=== PATIENT | female | born 1965 | race Caucasian/White ===

== ENCOUNTER → 2017-07-20 10:21 | Outpatient (CLI) | payer OTHER, SELFPAY ==
--- NOTE | 2017-07-20 10:24 | XR_ITS ---
XR knee LT 4V HISTORY: Osteoarthritis ITS.REASON: Left knee pain ORDERING PHYSICIAN: Adelfo Cintron MD PATIENT AGE: 52 years COMPARISON: 02/11/2016 FINDINGS: Weightbearing views are performed. There are tricompartmental osteoarthritic changes with slight decrease in the joint space and osteophyte formation. No fracture or dislocation. No lytic or blastic change. IMPRESSION: Mild tricompartmental osteoarthritis. This is slightly worse on today's exam when compared to 02/11/2016
== END ==
PROVIDERS: PCP Emergency Medicine; Visit Provider Orthopaedic Surgery
DX: M25.562 Pain in left knee (principal)
CPT/HCPCS: 73564

== ENCOUNTER → 2017-08-25 07:54 | Outpatient (CLI) | payer OTHER, SELFPAY ==
--- NOTE | 2017-08-25 07:57 | CT_ITS ---
CT head/brain wo con Ordering Physician: SYLVESTER Orta Patient Age: 52 years: Female HISTORY: ITS.REASON: headaches, behavior changes TECHNIQUE: Routine Axial CT head without contrast. CT bone windows included COMPARISON :None FINDINGS No acute intracranial findings. The brain appears within normal limits. No hemorrhage. No mass. No mass effect or midline shift. No subdural or extra-axial collection. The ventricles and basal cisterns appear satisfactory. Castelan-white matter patterns satisfactory. Posterior fossa appears normal The skull is intact.. . Mild mucosal thickening is seen at the partially imaged anterior ethmoid air cells bilaterally suggesting minor ethmoid inflammation... Minor observation but Conceivably could contribute to minor headache symptoms. Sphenoid and frontal sinuses are clear. The maxillary sinuses are not included on axial images but appear clear on sediment remediation consultant view. Mastoid air cells, middle ear and IACs appear satisfactory. IMPRESSION: ====== No acute intracranial findings. Brain within normal limits on today's CT head without contrast. Trace mucosal thickening anterior ethmoid air cells bilaterally..
== END ==
PROVIDERS: Family Provider Emergency Medicine; PCP Emergency Medicine; Visit Provider Physician Assistant
DX: R51 Headache (principal)
CPT/HCPCS: 70450

== ENCOUNTER → 2018-02-07 10:33 | Outpatient (CLI) | payer OTHER, SELFPAY ==
--- NOTE | 2018-02-07 10:37 | MM_ITS ---
MM Dig screening mamm BI w/CAD CAD Screening COMPARISON: Digital mammograms with CAD 02/11/2017 and 10/09/2012 INDICATION: There is no personal or family history of breast cancer TECHNIQUE: Standard CC and MLO images were obtained. R2 CAD reviewed. FINDINGS: Mild scattered fiber glandular densities are seen throughout both breasts slightly more prominent subareolar region right breast than left. There is no suspicious lesion and there are no suspicious microcalcifications. IMPRESSION: Fibrofatty parenchyma no suspicious lesion seen BI-RADS Category: 1 Negative RECOMMENDED FOLLOW-UP: 1YR - 1 YEAR FOLLOW-UP (A letter has been sent to the patient regarding results of the study.)
== END ==
PROVIDERS: PCP Physician Assistant; Visit Provider Physician Assistant
DX: Z12.31 Encounter for screening mammogram for malignant neoplasm of breast (principal)
CPT/HCPCS: 77067

== ENCOUNTER → 2018-03-20 18:25 | Outpatient (CLI) | payer OTHER, SELFPAY ==
[2018-03-20 18:59] LABS: Basophils # 0.1 K/mm3 (0-0.2); Basophils % 0.6 % (0.1-2.0); Eosinophils # 0.2 K/mm3 (0.0-0.4); Hematocrit 43.1 % (37.0-47.0); Lymphocytes # 3.6 K/mm3 (0.7-4.5); Lymphocytes % 31.1 K/mm3 (10-50); Mean Corpuscular HGB Conc 32.5 g/dL (31.8-35.4); Mean Corpuscular Hemoglobin 30.3 pg (27.0-31.2); Mean Corpuscular Volume 93.1 fl (81-99); Mean Platelet Volume 8.1 fl (7.4-10.4); Monocytes # 0.6 K/mm3 (0.1-1.0); Monocytes % 4.7 % (1.7-9.3); Neutrophils # 7.2 K/mm3 (1.8-7.8); Neutrophils % 61.7 % (37.0-80.0); Platelet Count 299 K/mm3 (142-424); Red Blood Count 4.63 M/mm3 (4.20-5.40); Red Cell Distribution Width 13.8 % (11.5-17.5); White Blood Count 11.6 K/mm3 (4.8-10.8)
[2018-03-20 19:47] LABS: Alanine Aminotransferase 28 U/L (12-78); Albumin Level 4.1 gm/dL (3.4-5.0); Albumin/Globulin Ratio 1.5 (1.1-1.8); Alkaline Phosphatase 63 U/L (46-116); Aspartate Amino Transferase 20 U/L (15-37); Bilirubin,Total 0.2 mg/dL (0.2-1.0); Blood Urea Nitrogen 13 mg/dL (7-18); Calcium 8.9 mg/dL (8.5-10.1); Carbon Dioxide 29 mmol/L (21.0-32.0); Chloride 105 mmol/L (98-107); Chol/HDL Ratio 4.9 (1-3.5); Cholesterol 202 mg/dL (140-200); Creatinine,Serum 0.82 mg/dL (0.55-1.02); Estimated Glomerular Filt Rate 73 ml/min (>60); GFR (African American) 89 ML/MIN (>60); Globulin 2.8 gm/dl (1.3-3.2); Glucose 89 mg/dL (74-106); HDL Cholesterol 41 mg/dL (29-89); LDL Cholesterol 113 mg/dL (0-130); Sodium 144 mmol/L (136-145); T4 (Thyroxine) 8.6 ug/dl (4.7-13.3); Thyroid Stimulating Hormone 1.19 uIU/ml (0.358-3.740); Total Protein,Serum 6.9 gm/dL (6.4-8.2); Triglycerides 240 mg/dL (30-200); VLDL Cholesterol 48 mg/dL (0-40)
[2018-03-22 14:43] LABS: FSH 43.5 mIU/mL (.); LH 29.8 mIU/mL (.); Vitamin D 25 Hydroxy 29.2 ng/mL (30.0-100.0)
[2018-03-24 14:17] LABS: Testosterone,Free 1.3 pg/mL (0.0-4.2)
[2018-03-25 18:41] LABS: Estrogen 84 pg/mL (.)
== END ==
PROVIDERS: Visit Provider Physician Assistant
DX: G47.00 Insomnia, unspecified (principal)
CPT/HCPCS: 80053; 80061; 82652; 82672; 83001; 83002; 84402; 84436; 84443; 85025

== ENCOUNTER → 2018-05-17 11:13 | Outpatient (CLI) | payer OTHER, SELFPAY ==
[2018-05-20 10:57] LABS: QuantiFERON-TB Gold Plus Negative (Negative)
== END ==
PROVIDERS: Visit Provider Physician Assistant
DX: R76.11 Nonspecific reaction to tuberculin skin test without active tuberculosis (principal)
CPT/HCPCS: 36415; 86480

== ENCOUNTER → 2018-10-23 09:58 | Outpatient (CLI) | payer OTHER, SELFPAY | PROVIDERS: PCP Emergency Medicine; Visit Provider Urology | DX: R06.02 Shortness of breath (principal); R00.2 Palpitations; R07.9 Chest pain, unspecified; I10 Essential (primary) hypertension | CPT/HCPCS: 93017 ==

== ENCOUNTER → 2018-10-27 09:21 | Outpatient (CLI) | payer OTHER, SELFPAY ==
--- NOTE | 2018-10-27 09:25 | CA_ITS ---
PROCEDURE: 2-D M-mode and color Doppler study INDICATIONS FOR THE TEST: Chest pain+ COPD Heart Murmur Tobacco Smoking+ Palpitations+ Fatigue Syncope Edema Hypertension+Diabetes Mellitus Rheumatic Fever SOB+DAMON Obesity Hyperlipidemia Family History HD Additional History PATIENT INFORMATION HEIGHT:67 WEIGHT:205 GENDER: Female B/P:132/90 2-D/M-MODE INTERPRETATION: 2-D MEASUREMENTS OBSERVED VALUES IN CMS Right Ventricular Dimension (RVDd) 2.6 Interventricular Septum (Thickness)(IVsd) 1.3 Left Ventricular Internal Dimensions(LVIDd) 4.6 Left Ventricular Posterior Wall (Thickness)(LVPWd) 0.8 Aortic Root 2.7 Aortic Cusp Separation 2.4 Left Atrial Dimensions (LAD) 3.0 2D 1. Left atrium is mildly enlarged, left ventricle is normal size, mild concentric left ventricular hypertrophy, visually estimated ejection fraction 55% with no regional wall motion abnormality. 2. Right atrium and right ventricle are normal size and contractility. 3. The aortic valve is minimally thickened and fibrosed. 4. The mitral and tricuspid valve leaflets are minimally thickened 5. The pulmonic valve is poorly visualized. 6. No significant pericardial effusion noted. DOPPLER INTERROGATION: Doppler interrogation of the aortic, mitral and tricuspid valvular presence of mild mitral and tricuspid regurgitation, tricuspid regurgitation jet velocity is inadequate for calculation of the right ventricular systolic pressure, grade 1 diastolic dysfunction seen without tissue Doppler evidence of raised left atrial pressure. CONCLUSION: 1. Mildly enlarged left atrium, normal left ventricular size, mild concentric left ventricular hypertrophy, visually estimated ejection fraction 55% with no regional wall motion abnormality, grade 1 diastolic dysfunction seen without tissue Doppler evidence of raised left atrial pressure. 2. Mild mitral and tricuspid regurgitation 3. No significant pericardial effusion noted.
== END ==
PROVIDERS: PCP Emergency Medicine; Visit Provider Urology
DX: I10 Essential (primary) hypertension (principal); I25.10 Atherosclerotic heart disease of native coronary artery without angina pectoris; R00.2 Palpitations; R06.02 Shortness of breath; R07.9 Chest pain, unspecified
CPT/HCPCS: 93306

== ENCOUNTER → 2020-10-23 14:07 | Outpatient (CLI) | payer OTHER, SELFPAY ==
[2020-10-23 15:21] LABS: Basophils # 0.1 K/mm3 (0-0.2); Basophils % 1.1 % (0.1-2.0); Eosinophils # 0.3 K/mm3 (0.0-0.4); Eosinophils % 4.8 % (0.1-12.0); Hematocrit 45.9 % (37.0-47.0); Hemoglobin 14.6 g/dL (12.2-16.2); Lymphocytes # 3.1 K/mm3 (0.7-4.5); Mean Corpuscular HGB Conc 31.8 g/dL (31.8-35.4); Mean Corpuscular Volume 94.4 fl (81-99); Mean Platelet Volume 7.8 fl (7.4-10.4); Monocytes # 0.3 K/mm3 (0.1-1.0); Monocytes % 4.9 % (1.7-9.3); Neutrophils # 2.5 K/mm3 (1.8-7.8); Neutrophils % 40.1 % (37.0-80.0); Platelet Count 283 K/mm3 (142-424); Red Blood Count 4.86 M/mm3 (4.20-5.40); Red Cell Distribution Width 13.4 % (11.5-17.5); White Blood Count 6.3 K/mm3 (4.8-10.8)
[2020-10-26 14:25] LABS: QuantiFERON-TB Gold Plus Negative (Negative)
== END ==
PROVIDERS: Visit Provider Internal Medicine Pulmonary Disease
DX: J45.909 Unspecified asthma, uncomplicated (principal)
CPT/HCPCS: 36415; 85025; 86480

== ENCOUNTER → 2020-11-03 13:16 | Outpatient (CLI) | payer OTHER, SELFPAY ==
--- NOTE | 2020-11-03 14:48 | CT_ITS ---
PROCEDURE: CT LUNG SCREENING CLINICAL INDICATION: lung cancer screening COMPARISON: No exams were available for comparison TECHNIQUE: The exam was performed on a GE Light Speed [address] scanner using 2.90 mGy CTDI. A low dose helical CT CHEST was performed on a multi-detector scanner. All CT scans at the facility use one or more dose reduction, viz: automated exposure control, ma/kV adjustment per patient size (including targeted exams where dose is matched to indication, i.e. head), or iterative reconstruction technique. The LDCT was performed in a facility that meets the criteria for the screening program. Data regarding this exam was submitted to ACR which is an approved registry. The order for this exam indicates that it came as a result of a lung cancer screening counseling shard decision-making visit that included all the elements required of such a visit including smoking cessation. The radiologist interpreting this exam meets the CMS criteria for the LDCT lung cancer screening program. The exam is reported using the Lung-RADS classification scale and reported to the ACR registry. NOTE: This study was performed for the specific purposes of lung cancer screening and is not an alternative to diagnostic chest CT. RADIATION DOSE: CTDI vol(CT dose Index-volume) = 2.90mG DLP (Dose Length Product) = mGcm FINDINGS: There are scattered emphysematous changes with some bibasilar scar versus atelectasis. No definitive discrete pulmonary nodules. Small calcified granuloma in the left lung base. No pleural effusion or pneumothorax. Heart is not enlarged. No pericardial effusion or thickening. No ground-glass opacities in the lungs or pulmonary consolidation. Airways are patent. Thoracic aorta is normal without aneurysm. No enlarged axillary lymph nodes. A few small non-specific middle mediastinal lymph nodes are noted. Hilar regions grossly appear normal. Images of the upper abdomen show some diffuse fatty infiltration of the visualized liver. No adrenal mass. There are some diffuse degenerative changes of the thoracic spine. Small benign appearing sclerotic focus noted in the T2 vertebral body. OTHER FINDINGS: No other pertinent findings evident. IMPRESSION: Lung-RADS Category 2 Benign Appearance or Behavior Follow-up: Serial follow-up in 1 year. Scattered emphysematous changes with some bibasilar scar versus atelectasis. No definitive discrete pulmonary nodules noted. Dictated by: Adelfo Ceja 11/04/2020 11:03 Adelfo Ceja in OV 11/04/2020 11:03
--- NOTE | 2020-11-03 14:53 | PC.NURSE ---
Full PFT and 6 minute walk completed without incident. Albuterol 0.083% given via HHN per written protocol Pt tolerated tx well.
== END ==
PROVIDERS: PCP Physician Assistant; Visit Provider Nurse Practitioner Family
DX: R06.02 Shortness of breath (principal); Z87.891 Personal history of nicotine dependence; Z12.2 Encounter for screening for malignant neoplasm of respiratory organs
CPT/HCPCS: 71271; 94060; 94618; 94726; 94729

== ENCOUNTER → 2021-10-02 12:56 | Outpatient (CLI) | payer OTHER, SELFPAY ==
--- NOTE | 2021-10-02 13:02 | XR_ITS ---
FINAL REPORT CLINICAL HISTORY: knee pain COMPARISON: 07/20/2017 FINDINGS: LEFT KNEE: Four views of the left knee obtained. There is no acute fracture or dislocation. There are [id number] degenerative changes. There is no soft tissue abnormality. IMPRESSION: Degenerative changes as above. Reviewed, Interpreted and Dictated by Mikel Cristobal III, MD Transcribed by Fifi Nance Authenticated by Mikel Cristobal III, MD on 10/02/2021 02:51:00 PM [facility]
--- NOTE | 2021-10-02 13:02 | XR_ITS ---
FINAL REPORT CLINICAL HISTORY: knee pain COMPARISON: February 11, 2016 FINDINGS: RIGHT KNEE: Four views of the right knee obtained. There is no acute fracture or dislocation. There are moderate and severe degenerative changes, worst at the medial compartment. The medial compartment degenerative changes have progressed since the prior exam. There is a suprapatellar calcification measuring 11 mm, worrisome for a loose body. There is no acute soft tissue abnormality. IMPRESSION: Degenerative changes as above. Findings worrisome for loose body. Reviewed, Interpreted and Dictated by Mikel Cristobal III, MD Transcribed by Fifi Nance Authenticated by Mikel Cristobal III, MD on 10/02/2021 02:50:57 PM [facility]
== END ==
PROVIDERS: PCP Emergency Medicine; Visit Provider Orthopaedic Surgery
DX: M25.561 Pain in right knee (principal); M25.562 Pain in left knee
CPT/HCPCS: 73564

== ENCOUNTER 2021-10-30 11:32 | Outpatient (RCR) | payer OTHER, SELFPAY | END 2021-10-30 12:30 | disposition home or self-care (01) | LOC: PT 11:32 | PROVIDERS: Visit Provider Orthopaedic Surgery | DX: M25.562 Pain in left knee (principal); M25.561 Pain in right knee | CPT/HCPCS: 97760 ==

== ENCOUNTER 2021-12-03 09:00 | Outpatient (RCR) | payer OTHER, SELFPAY ==
--- NOTE | 2021-11-04 12:02 | HMH.PTOPEV ---
PT Outpatient Evaluation Rehab PT Outpatient Evaluation Start: 11/04/21 11:04 Freq: Status: Active Protocol: Document 11/04/21 11:04 SULLY (Rec: 11/04/21 12:01 SULLY [id number]) Electronically Signed By Betty Rossi, DIEGO 11/04/21 11:04 Outpatient Therapy Subjective History Subjective History Pt is a 56 y/o female that reports onset of right knee pain approximately 5 years ago . Pt reports the left knee doesn't hurt as bad and started hurting a year ago.Pt had a knee xray at [facility] perform 10/02/21 showing mild-moderate degenerative changes and states arthritis runs in her family. Pt states she would like to avoid surgery as long as possible. Pt reports she notices swelling in the back of the right knee with activity with improvements following rest.Pt reports she hears popping in the right knee while standing/walking and feels like it will give out. Pt reports she is able to stand 1 hr and walk <10 minutes without increased pain . Pt reports she used to workout here at [facility] doing 1-3 mi on elliptical and weight lifting. Pt reports she got a brace 1 week ago but just started wearing the brace today. Pt reports she has 2-3 steps outside the home with pain/difficulty going up them. Pt reports she has a pool she has been trying to walk in as she can. Pt reports she has high blood pressure which makes her feel dizzy but otherwise denies balance issues. Medical Hx:hypertension, hypothyroidism, GERD Chief Complaint Pain,Stiff,Gives out/Unstable Symptom Type Sharp,Stabbing Symptoms Relieved By Rest/Positioning,Heat,Brace/ Support Symptoms Aggravated By Standing,Jesse
== END 2021-12-03 09:05 | disposition home or self-care (01) ==
LOC: PT 09:00
PROVIDERS: PCP Emergency Medicine; Visit Provider Orthopaedic Surgery
DX: M25.562 Pain in left knee (principal); M25.561 Pain in right knee
CPT/HCPCS: 97110; 97163; 97530

== ENCOUNTER → 2022-02-24 14:57 | Outpatient (CLI) | payer OTHER, SELFPAY ==
--- NOTE | 2022-02-24 15:09 | CT_ITS ---
FINAL REPORT TECHNIQUE: Axial images were obtained from the lung apex to the mid abdomen by computed tomography. This study was performed with techniques to keep radiation doses as low as reasonably achievable (ALARA). Individualized dose reduction techniques using automated exposure control or adjustment of mA and/or kV according to the patient's size were employed. CLINICAL HISTORY: lung cancer screening. SOA, cough. 53 pack years. Hx COPD COMPARISON: 11/03/2020 FINDINGS: CHEST CT LOW DOSE CTDI vol (mGy): 2.90 DLP (mGy-cm): 97.42 There is no axillary adenopathy. There are small mediastinal nodes. The heart is normal in size. There is no pericardial or pleural effusion. Lung window images demonstrate no suspicious infiltrate or nodule. There is a calcified granuloma in the left lower lobe. There is mild scarring. Limited images of the upper abdomen are unremarkable. IMPRESSION: Lung RADS category 1. Recommend 12 month follow-up low-dose chest CT. Reviewed, Interpreted and Dictated by Mikel Cristobal III, MD Transcribed by [place] Authenticated and [facility]
== END ==
PROVIDERS: PCP Emergency Medicine; Visit Provider Internal Medicine Pulmonary Disease
DX: Z87.891 Personal history of nicotine dependence (principal); Z12.2 Encounter for screening for malignant neoplasm of respiratory organs
CPT/HCPCS: 71271

== ENCOUNTER → 2022-03-16 13:00 | Outpatient (CLI) | payer OTHER, SELFPAY ==
[2022-03-16 13:36] LABS: Basophils # 0.1 K/mm3 (0-0.2); Basophils % 1.3 % (0.1-2.0); Eosinophils # 0.3 K/mm3 (0.0-0.4); Eosinophils % 2.6 % (0.1-12.0); Hematocrit 44.4 % (37.0-47.0); Hemoglobin 14.3 g/dL (12.2-16.2); Lymphocytes # 3.2 K/mm3 (0.7-4.5); Lymphocytes % 33.4 % (10-50); Mean Corpuscular HGB Conc 32.1 g/dL (31.8-35.4); Mean Corpuscular Hemoglobin 31.4 pg (27.0-31.2); Mean Corpuscular Volume 97.7 fl (81-99); Mean Platelet Volume 8.7 fl (7.4-10.4); Monocytes # 0.6 K/mm3 (0.1-1.0); Monocytes % 6.1 % (1.7-9.3); Neutrophils # 5.5 K/mm3 (1.8-7.8); Neutrophils % 56.7 % (37.0-80.0); Platelet Count 349 K/mm3 (142-424); Red Blood Count 4.55 M/mm3 (4.20-5.40); Red Cell Distribution Width 13.9 % (11.5-17.5); White Blood Count 9.7 K/mm3 (4.8-10.8)
[2022-03-16 14:27] LABS: Chloride 101 mmol/L (98-107); Potassium 4.4 mmoL/L (3.5-5.1); Sodium 138 mmol/L (136-145)
[2022-03-16 14:29] LABS: Blood Urea Nitrogen 12 mg/dl (7-17); Estimated Glomerular Filt Rate 74 ml/min (>60); GFR (African American) 90 ML/MIN (>60)
[2022-03-16 14:30] LABS: Alanine Aminotransferase 20 U/L (12-78); Albumin Level 4.3 g/dl (3.5-5.0); Albumin/Globulin Ratio 1.9 (1.1-1.8); Alkaline Phosphatase 61 U/L (38-126); Anion Gap 13.4 mEq/L (5-15); Aspartate Amino Transferase 27 U/L (14-36); Bilirubin,Total 0.3 mg/dl (0.2-1.3); Calcium 8.8 mg/dl (8.4-10.2); Carbon Dioxide 28 mmol/L (22.0-30.0); Cholesterol 242 mg/dl (140-200); Globulin 2.3 g/dL (1.3-3.2); Glucose 78 mg/dl (74-100); HDL Cholesterol 48 mg/dl (40-60); Total Protein,Serum 6.6 g/dl (6.3-8.2); Triglycerides 119 mg/dl (30-150); VLDL Cholesterol 24 mg/dL (0-40)
[2022-03-16 14:41] LABS: Direct LDL Cholesterol 148.19 mg/dL (100-129)
[2022-03-16 14:47] LABS: T4 (Thyroxine) 10.1 ug/dl (5.53-11.0)
[2022-03-16 15:00] LABS: Thyroid Stimulating Hormone 1.38 uIU/mL (0.465-4.68)
[2022-03-16 15:31] LABS: Free Thyroxine Index 3.4 ug/dL (5.93-13.13); Triiodothryronine (T3) Uptake 34 % (23.5-40.5)
== END ==
PROVIDERS: PCP Emergency Medicine; Visit Provider Nurse Practitioner Obstetrics & Gynecology
DX: Z01.419 Encounter for gynecological examination (general) (routine) without abnormal findings (principal); Z79.899 Other long term (current) drug therapy
CPT/HCPCS: 36415; 80053; 80061; 84436; 84443; 84479; 85025

== ENCOUNTER → 2022-04-30 18:28 | Outpatient (CLI) | payer OTHER, SELFPAY | PROVIDERS: PCP Nurse Practitioner Family; Visit Provider Nurse Practitioner Family | DX: N39.0 Urinary tract infection, site not specified (principal) | CPT/HCPCS: 87086 ==

== ENCOUNTER → 2022-05-13 18:22 | Outpatient (CLI) | payer OTHER, SELFPAY | PROVIDERS: PCP Nurse Practitioner Family; Visit Provider Nurse Practitioner Family | DX: N39.0 Urinary tract infection, site not specified (principal); A49.9 Bacterial infection, unspecified | CPT/HCPCS: 87086 ==

== ENCOUNTER → 2022-11-18 13:52 | Outpatient (CLI) | payer OTHER, SELFPAY ==
[2022-11-18 12:42] LABS: Basophils # 0.1 K/mm3 (0-0.2); Basophils % 0.9 % (0.1-2.0); Eosinophils # 0.2 K/mm3 (0.0-0.4); Eosinophils % 1.8 % (0.1-12.0); Hematocrit 46.7 % (37.0-47.0); Hemoglobin 14.9 g/dL (12.2-16.2); Lymphocytes # 3.7 K/mm3 (0.7-4.5); Lymphocytes % 40.3 % (10-50); Mean Corpuscular HGB Conc 31.8 g/dL (31.8-35.4); Mean Corpuscular Hemoglobin 30.8 pg (27.0-31.2); Mean Corpuscular Volume 96.7 fl (81-99); Mean Platelet Volume 8.6 fl (7.4-10.4); Monocytes # 0.8 K/mm3 (0.1-1.0); Monocytes % 8.4 % (1.7-9.3); Neutrophils # 4.5 K/mm3 (1.8-7.8); Neutrophils % 48.6 % (37.0-80.0); Platelet Count 303 K/mm3 (142-424); Red Blood Count 4.83 M/mm3 (4.20-5.40); Red Cell Distribution Width 13.7 % (11.5-17.5); White Blood Count 9.2 K/mm3 (4.8-10.8)
[2022-11-18 12:48] LABS: Alanine Aminotransferase 20 U/L (12-78); Albumin Level 4.5 g/dl (3.5-5.0); Albumin/Globulin Ratio 1.8 (1.1-1.8); Alkaline Phosphatase 54 U/L (38-126); Anion Gap 14.2 mEq/L (5-15); Aspartate Amino Transferase 24 U/L (14-36); Bilirubin,Total 0.5 mg/dl (0.2-1.3); Blood Urea Nitrogen 13 mg/dl (7-17); Calcium 9.5 mg/dl (8.4-10.2); Carbon Dioxide 27 mmol/L (22.0-30.0); Chloride 104 mmol/L (98-107); Chol/HDL Ratio 4.7 (1-3.5); Cholesterol 257 mg/dl (140-200); Estimated Glomerular Filt Rate 86 ml/min (>60); GFR (African American) 104 ML/MIN (>60); Globulin 2.5 g/dL (1.3-3.2); Glucose 83 mg/dl (74-100); HDL Cholesterol 55 mg/dl (40-60); Magnesium 2.1 mg/dl (1.6-2.3); Potassium 4.2 mmoL/L (3.5-5.1); Sodium 141 mmol/L (136-145); Triglycerides 128 mg/dl (30-150); VLDL Cholesterol 26 mg/dL (0-40)
[2022-11-18 13:00] LABS: Direct LDL Cholesterol 148.24 mg/dL (100-129)
[2022-11-18 13:08] LABS: 25-OH Vitamin D, Total 32.7 ng/mL (30-100)
[2022-11-18 13:10] LABS: Free T4 (Free Thyroxine) 1.54 ng/dl (0.78-2.19)
[2022-11-18 13:23] LABS: Thyroid Stimulating Hormone 0.82 uIU/mL (0.465-4.68)
[2022-11-18 13:42] LABS: Vitamin B12 488 pg/mL (239-931)
[2022-11-18 13:47] LABS: Iron 139 ug/dL (37-170)
[2022-11-18 13:56] LABS: Total Iron Binding Capacity 332 ug/dL (265-497)
[2022-11-18 14:24] LABS: Ferritin 123 ng/ml (11.1-264)
== END ==
PROVIDERS: PCP Nurse Practitioner Family; Visit Provider Nurse Practitioner Family
DX: E03.9 Hypothyroidism, unspecified (principal); E78.5 Hyperlipidemia, unspecified; R53.83 Other fatigue; E66.9 Obesity, unspecified; Z68.31 Body mass index [BMI] 31.0-31.9, adult; Z79.899 Other long term (current) drug therapy
CPT/HCPCS: 80053; 80061; 82306; 82330; 82607; 82728; 83540; 83550; 83735; 84439; 84443; 85025

== ENCOUNTER → 2022-12-10 10:50 | Outpatient (CLI) | payer OTHER, SELFPAY ==
--- NOTE | 2022-12-10 10:56 | XR_ITS ---
FINAL REPORT CLINICAL HISTORY: Rt Knee Pain COMPARISON: 10/02/2021 FINDINGS: AP, lateral and oblique views of the right knee were obtained. There is no acute fracture or dislocation. There is tricompartmental degenerative joint disease. There is a calcified suprapatellar loose body. The soft tissues are normal. There is no joint effusion. IMPRESSION: Tricompartmental degenerative joint disease without acute osseous abnormality. Reviewed, Interpreted and Dictated by Greta Garibay MD Transcribed by Fifi Nance Authenticated and [facility]
== END ==
PROVIDERS: PCP Emergency Medicine; Visit Provider Orthopaedic Surgery
DX: M25.561 Pain in right knee (principal)
CPT/HCPCS: 73562

== ENCOUNTER 2024-09-20 08:52 | Outpatient (CLI) | payer MEDICAID, SELFPAY ==
[2024-09-20 18:26] LABS: Basophils # 0.1 K/mm3 (0-0.2); Eosinophils # 0.3 Kmm3 (0.0-0.4); Eosinophils % 3.7 % (0.1-12.0); Hematocrit 45.5 % (37.0-47.0); Lymphocytes # 2.9 K/mm3 (0.7-4.5); Lymphocytes % 41.8 % (10-50); Mean Corpuscular Hemoglobin 30.6 pg (27.0-31.2); Mean Corpuscular Volume 92.9 fl (81-99); Mean Platelet Volume 10.3 fl (7.4-10.4); Monocytes # 0.6 K/mm3 (0.1-1.0); Monocytes % 8.3 % (1.7-9.3); Neutrophils # 3.1 K/mm3 (1.8-7.8); Neutrophils % 44.8 % (37.0-80.0); Nucleated Red Blood Cells # 0 10^3/uL; Nucleated Red Blood Cells % 0 %; Platelet Count 329 K/mm3 (142-424); Red Cell Distribution Width-SD 47.5 fL; White Blood Count 6.8 K/mm3 (4.8-10.8)
[2024-09-20 19:07] LABS: Alanine Aminotransferase 30 U/L (12-78); Albumin Level 4.5 g/dl (3.5-5.0); Alkaline Phosphatase 82 U/L (38-126); Anion Gap 8.1 mEq/L (5-15); Aspartate Amino Transferase 28 U/L (14-36); Bilirubin,Total 0.5 mg/dl (0.2-1.3); Blood Urea Nitrogen 11 mg/dl (7-17); Calcium 9.8 mg/dl (8.4-10.2); Carbon Dioxide 27 mmol/L (22.0-30.0); Chloride 106 mmol/L (98-107); Chol/HDL Ratio 7.4 (1-3.5); Cholesterol 245 mg/dl (140-200); Estimated Glomerular Filt Rate 86 ml/min (>60); GFR (African American) 104 ML/MIN (>60); Globulin 2.2 g/dL (1.3-3.2); Glucose 99 mg/dl (74-100); HDL Cholesterol 33 mg/dl (40-60); Potassium 4.1 mmoL/L (3.5-5.1); Sodium 137 mmol/L (136-145); Total Protein,Serum 6.7 g/dl (6.3-8.2); Triglycerides 204 mg/dl (30-150); VLDL Cholesterol 41 mg/dL (0-40)
[2024-09-20 19:14] LABS: 25-OH Vitamin D, Total 28.7 ng/mL (30-100)
[2024-09-20 19:28] LABS: Direct LDL Cholesterol 146.98 mg/dL (100-129)
[2024-09-20 19:32] LABS: HIV Combo NEGATIVE (Negative)
[2024-09-20 19:41] LABS: Hepatitis C Ab Qual. W/ RFX NEGATIVE (Negative)
[2024-09-20 19:50] LABS: Vitamin B12 950 pg/mL (239-931)
--- OUTSIDE RECORDS SUMMARY | 2024-09-21 12:42 | XMS_ITS | Data Portability ---
Author Organization [facility] Address [address] [place] [address] Assessment No assessment recorded. Plan of Treatment Reminders Order Date Submit Date Provider Last Modified By Organization Details Last Modified Time Details Appointments None recorded. Lab urinalysis, dipstick 2022 023 [facility], [address] [place] [address], [phone], 3 12:14:48 urinalysis, dipstick [address] [facility], [address] [place] [address], [phone], 2 14:27:35 Referral None recorded. Procedures None recorded. Surgeries None recorded. Imaging None recorded. Medication Orders prasterone (DHEA) 6.5 mg vaginal insert 2022 023 [facility], [address] [place] [address] [address] [place], [place], [id number], 3 18:05:47 estradiol 0.01% (0.1 mg/gram) vaginal cream 2022 023 [facility], [address] [place] [address] [address], [place], [place], [phone], 3 16:01:00 Patient TargetsNo targets recorded. Patient InstructionsNo instructions recorded. Reason for Referral None Reported. Results Created Date Observation Date Name Description Value Unit Range Abnormal Flag Note LastModifiedBy Organization Detail LastModifiedTime 05/07/20 22 05/07/2022 urina lysis , dipst ick Leukocytes (reference range) negati ve Not Available [facility] [address] [place] [address], [phone], 05/07/2022 12:00:27 05/07/20 22 05/07/2022 urina lysis , dipst ick Nitrite (reference range:) negati ve Not Available [address], [address], 05/07/2022 12:00:27 05/07/20 22 05/07/2022 urina lysis , dipst ick Urobilinogen (reference range) 0.2 Not Available [address], [address], 05/07/2022 12:00:27 05/07/20 22 05/07/2022 urina lysis , dipst ick Protein (reference range) negati ve Not Available [address], [address], 05/07/2022 12:00:27 05/07/20 22 05/07/2022 urina lysis , dipst ick pH (reference range 5-8.5) 7.0 Not Available [facility] [address] [place] [address], [phone], 05/07/2022 12:00:27 05/07/20 22 05/07/2022 urina lysis , dipst ick Blood (reference range:) hemoly zed: Trace Not Available [address], [address], 05/07/2022 12:00:27 05/07/20 22 05/07/2022 urina lysis , dipst ick Specific [place] (reference range) 1.010 Not Available [facility] [address] [place] [address], [phone], 05/07/2022 12:00:27 05/07/20 22 05/07/2022 urina lysis , dipst ick Ketone (reference range) negati ve Not Available [facility] [address] [place] [address], [phone], 05/07/2022 12:00:27 05/07/20 22 05/07/2022 urina lysis , dipst ick Bilirubin (reference range) negati ve Not Available [facility] [address] [place] [address], [phone], 05/07/2022 12:00:27 05/07/20 22 05/07/2022 urina lysis , dipst ick Glucose (reference range) negati ve Not Available [facility] [address] [place] [address], [phone], 05/07/2022 12:00:27 03/22/20 23 03/22/2023 urina lysis , dipst ick Leukocytes (reference range) negati ve Not Available [address], [address], 03/22/2023 10:03:05 03/22/20 23 03/22/2023 urina lysis , dipst ick Nitrite (reference range:) negati ve Not Available [address], [address], 03/22/2023 10:03:05 03/22/20 23 03/22/2023 urina lysis , dipst ick Urobilinogen (reference range) 0.2 Not Available [address], [address], 03/22/2023 10:03:05 03/22/20 23 03/22/2023 urina lysis , dipst ick Protein (reference range) negati ve Not Available [facility] [address] [place] [address], [phone], 03/22/2023 10:03:05 03/22/2003/22/2023 urina lysis , dipst ick pH (reference range 5-8.5) 7.0 Not Available [facility] [address] [place] [address], [phone], 03/22/2023 10:03:05 03/22/2003/22/2023 urina lysis , dipst ick Blood (reference range:) negati ve Not Available [address], [address], 03/22/2023 10:03:05 03/22/2003/22/2023 urina lysis , dipst ick Specific [place] (reference range) 1.010 Not Available [address], [address], 03/22/2023 10:03:05 03/22/2003/22/2023 urina lysis , dipst ick Ketone (reference range) negati ve Not Available [address], [address], 03/22/2023 10:03:05 03/22/2003/22/2023 urina lysis , dipst ick Bilirubin (reference range) negati ve Not Available [address], [address], 03/22/2023 10:03:05 03/22/2003/22/2023 urina lysis , dipst ick Glucose (reference range) negati ve Not Available [address], [address], 03/22/2023 10:03:05 Result Notes None recorded. Problems Name Problem SNOMED Code Status Onset Date Resolution Date Notes Provider Name and Address Organization Details Recorded Time Anemia 780382937 Active 2021 Elaine bourgeois, [place] - [facility] & [place] 2 11:07:14 Hypertensive disorder 65236219 Active 2021 Elaine bourgeois, [place] - [facility] - [facility] & [place] 2 11:07:20 Environmental allergy 196326119 Active 2021 Elaine bourgeois, [place] - [facility] - [facility] & [place] 2 11:07:28 Arthritis 8736521 Active 2021 Elaine bourgeois, [place] - [facility] - [facility] & [place] 2 11:07:36 Chronic obstructive pulmonary disease 70471614 Active 2021 Elaine bourgeois, [place] - [facility] - [facility] & [place] 2 11:07:46 Problem Notes None recorded. Procedures Surgical History Date Name Laterality Status Provider Name and Address Organization Details Recorded Time 03/22/20 23 Urethral Dilation (female) completed Bharat Orona Jr, MD [address] [place] [address], [address], [place], [address], [place] - [facility] - [place] & [place] 03/22/2023 10:14:17 05/07/20 22 Urethral Dilation (female) completed Bharat Orona Jr, MD [address] [place] [address], [address], [place], [address], [place] - [facility] - [place] & [place] 05/07/2022 14:31:28 Total Hysterectomy completed Elaine DODSON - [facility] & [place] 05/07/2022 11:08:36 tonsillectomy completed Elaine DODSON - [facility] - [place] & [place] 05/07/2022 11:08:42 Imaging Results None recorded. Procedure Notes None recorded. Medical Equipment None Reported. Allergies Allergen ID Allergen Name Allergen Category Reaction Reaction Severity Criticality Documentation Date Start Date Code Code System Note Provider Name and Address Organization Details Recorded Time 60952 Product containin g penicilli n (product) medicatio n Not available Not available Not available 05/07/2022 93256 8001 SNOMED Elaine Parikh [facility], [place] - [facility] - [place] & [place] 2 11:03:22 Medications Name Sig Start Date Stop Date Status Note LastModified by Organization Details LastModified Time cyclobenzapr ine 10 mg tablet TAKE ONE TABLET BY MOUTH TWICE DAILY MAY CAUSE DROWSINESS active Not Available Not Available N ot Available meloxicam 15 mg tablet TAKE ONE TABLET BY MOUTH EVERY DAY active Not Available Not Available No t Available lisinopril 20 mg tablet TAKE ONE TABLET BY MOUTH EVERY DAY active Not Available Not Available No t Available isosorbide mononitrate ER 30 mg tablet,exten ded release 24 hr TAKE ONE TABLET BY MOUTH EVERY DAY active Not Available Not Available No t Available omeprazole 40 mg capsule,hira yed release TAKE ONE CAPSULE BY MOUTH EVERY DAY active Not Available Not Available No t Available levothyroxin e 75 mcg tablet TAKE ONE TABLET BY MOUTH EVERY DAY active Not Available Not Available No t Available estradiol 2 mg tablet TAKE ONE TABLET BY MOUTH EVERY DAY active Not Available Not Available No t Available polyethylene glycol 3350 17 gram/dose oral powder DISSOLVE 17 GRAMS OF POWDER INTO 4 TO 8 OUNCES OF WATER, JUICE, SODA, COFFEE, OR TEA THEN DRINK EVERY DAY active Not Available Not Available No t Available estradiol 0.01% (0.1 mg/gram) vaginal cream insert 0.5 grams vaginally three times a WEEK (apply TO VAGINA PER finger technique - stripe of cream across two fingers TO upper VAGINA) 2023 active Not Available Not Available Not Avai lable albuterol sulfate HFA 90 mcg/actuatio n aerosol inhaler INHALE 1 PUFF BY MOUTH FOUR TIMES DAILY NEEDED FOR SHORTNESS OF BREATH OR wheezing active Not Available Not Available Not Available cefdinir 300 mg capsule Take 1 capsule every 12 hours by oral route. 2021 active Not Available Not Available Not Avai lable fluoxetine 20 mg capsule TAKE ONE CAPSULE BY MOUTH EVERY DAY active Not Available Not Available No t Available fluticasone propionate 50 mcg/actuatio n nasal spray,suspen niya INSTILL 2 SPRAYS IN EACH NOSTRIL EVERY DAY active Not Available Not Available No t Available nitrofuranto in monohydrate/ macrocrystal s 100 mg capsule TAKE ONE CAPSULE BY MOUTH EVERY TWELVE HOURS FOR 10 DAYS -- FINISH ALL MEDICINE -- --TAKE WITH FOOD-- active Not Available Not Available No t Available meloxicam active Not Available Not Natalia ilable Not Available estradiol active Not Available Not Natalia ilable Not Available fluoxetine active Not Available Not Av ailable Not Available omeprazole active Not Available Not Av ailable Not Available lisinopril active Not Available Not Av ailable Not Available isosorbide active Not Available Not Av ailable Not Available oxybutynin active Not Available Not Av ailable Not Available Symbicort 160 mcg-4.5 mcg/actuatio n HFA aerosol inhaler INHALE TWO PUFFS BY MOUTH TWICE DAILY --RINSE MOUTH AFTER USE-- active Not Available Not Available No t Available B12 active Not Available Not Availa ble Not Available Intrarosa 6.5 mg vaginal insert INSERT 1 VAGINAL INSERT INTRAVAGINA LLY EVERY DAY DIRECTED 2022 active Not Available Not Available Not Avai lable Vitals Date Recorded Body height Body mass index (BMI) Body weight Body temperature Provider Name and Address Organization Details Last Updated DateTime 03/22/2023 170.18 cm 32.1 kg/m2 33511.44 g 97.9 [degF] Elaine Parikh [facility] & [place] 03/22/2023 09:25:19 Date Recorded Body height Body mass index (BMI) Body weight Body temperature Provider Name and Address Organization Details Last Updated DateTime 05/07/2022 170.18 cm 32.1 kg/m2 22151.44 g 97.8 [degF] Elaine Parikh [facility] & [place] 05/07/2022 11:03:06 Social History Question Answer Notes LastModified by Organizat ion Details LastModified Time Tobacco Smoking Status Current Every Day Smoker Elaine bourgeois, [facility] & [place] 05/07/2022 11:08:28 What Is Your Level Of Alcohol Consumption? None [email or web address] Information not available 05/07/2022 Sex: Unknown Functional Status None recorded. Mental Status None recorded. Family History Relationship Description Onset Age of this Age Resolved Age Notes LastModified by Organization Details LastModified Time Father Family history unknown [email or web address] Not available 2021 11:08:05 Mother Family history unknown [email or web address] Not available 2021 11:08:05 Medical History No medical history recorded. Gynecological HistoryNo gynecological history recorded. Obstetrics History GPAL:G 0 P 0 0 0 0 Past Encounters Encounter ID Performer Location Encounter Start Date Encounter Closed Date Diagnosis/Indication Diagnosis SNOMED-CT Code Diagnosis ICD10 Code Diagnosis Note [id number] Bharat Orona Jr, MD [facility] [address] [place], [place] [address]ann [facility] [employer] [id number] 05/07/2022 10:41:01 05/07/2022 11:59:58 Urethritis 91316557 N34.2 Patient with recurrent symptoms of dysuria, frequency and urgency last week. 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 Catheteriz ation was performed afterwards showing a residual of a 50 cc. Residual at her last dilation in October 2020 was 120 cc. We discussed that she does not empty her bladder out as well as she should and medication s like Myrbetriq and oxybutynin should be avoided. We discussed that her chronic symptoms could be from interstiti al cystitis and dietary restrictio ns were discussed today and literature given. She is to return on an as-needed basis. Stenosis o f urinary meatus 363459199 N35.92 urethral dilation performed today with 24, 26 and 28 Ch[place] sounds. Patient tolerated procedure well. No significan t resistance was noted. [id number] Bharat Orona Jr, MD [facility] [address] [place], [place] [address] [employer] [id number] 03/22/2023 09:22:49 03/22/2023 10:02:38 Dysuria 24954311 R30.0 Patient with history of urethral stenosis. She thinks she may require repeat dilation today she is having some recurrent symptoms of dysuria, suprapubic pain back pain. Her urinalysis is within normal limits. She typically takes some estrogen cream p.r.n. but is out of it. Urethral dilation was performed today. There is no evidence of significan t resistance . We discussed the possible urethral trigonitis is cause for symptoms. Urethritis 73504503 N34. 2 Patient with recurrent symptoms of dysuria, frequency and urgency last week. 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 catheter was placed with only 20 cc of residual. Neosporin instilled into her bladder for prophylaxi s. We will refill her estradiol cream and start her on the Intrarosa vaginal suppositor ies Health Concerns Section Related Observation LastModified by Organization Detai ls LastModified Time None Recorded Concern Status LastModified by Organization Details LastModified Time None Recorded Advance Directives Directive None Recorded Payers Encounter Date Sequence Insurance Name Policy Number Policy Tatum Covered Member ID Tatum Member ID Guarantor Name 05/07/2022 1 [employer]LET[employer] [facility] (MEDICAID HMO) Janina Ag [id number] Janina Ag 03/22/2023 1 [employer] [facility] (MEDICAID HMO) Janina Ag [id number] Janina Ag Notes Date Note Type Note Provider Name and Address Organization Details Recorded Time 05/07/2022 text/html Patient is a 57-year-old white female with a history of urethral stenosis. She was previously seen at [facility] and sent the Jana. She was last seen myself in October 2020. she returns today with recurring symptoms of lower abdominal pain, frequency and urgency. She states she went to the emergency room last due to the lower abdominal pain. Workup there was unavailable but she states she was placed on a course of Macrobid as well as Myrbetriq. She only took the Myrbetriq for few days. Her nose were reviewed from her last visit in October 2020. She urethral dilation at that time and her postvoid residual by catheterization was 100 cc. She has multiple complaints today in not all of them urologic. Her urinalysis was unremarkable. She states she drinks a large amount of caffeine and breads. She does request repeat urethral dilation today as it has helped her symptoms in the past. Bharat Orona Jr, MD [address], [address], [place], [address], [place] - [facility] - [place] & [place] 05/07/2022 14:34:49 03/22/2023 text/html patient is a 57-year-old white female with a history urethral stenosis. She returns today complaining of some vaginal dryness and urethral discomfort. His last seen April 2022 and urethral dilation performed that. Her urinalysis today is within normal limits. States he ran out of her estradiol cream month ago. Bharat Orona Jr, MD [address] [place] [address], [address], [place], [address], [place] - [facility] - [place] & [place] 03/22/2023 10:21:54 OBGyn Episode No OBEpisode recorded.
== END 2024-09-20 23:59 | disposition home or self-care (01) ==
LOC: LAB.DROPOF 09-21 12:40
PROVIDERS: PCP Family Medicine; Visit Provider Family Medicine
DX: Z11.59 Encounter for screening for other viral diseases (principal); E03.9 Hypothyroidism, unspecified; R53.83 Other fatigue; F17.210 Nicotine dependence, cigarettes, uncomplicated
CPT/HCPCS: 80053; 80061; 82306; 82607; 84443; 85025; 86803; 87389

== ENCOUNTER 2024-10-31 12:48 | Outpatient (CLI) | payer MEDICAID, SELFPAY ==
--- OUTSIDE RECORDS SUMMARY | 2024-10-31 12:51 | XMS_ITS | Data Portability ---
Author Organization [facility] Address [address] [place] [address] Assessment No assessment recorded. Plan of Treatment Reminders Order Date Submit Date Provider Last Modified By Organization Details Last Modified Time Details Appointments None recorded. Lab urinalysis, dipstick 2022 023 [facility], [address] [place] [address], [phone], 3 12:14:48 urinalysis, dipstick 2021 022 [facility], [address] [place] [address], [phone], 2 14:27:35 Referral None recorded. Procedures None recorded. Surgeries None recorded. Imaging None recorded. Medication Orders prasterone (DHEA) 6.5 mg vaginal insert 2022 023 [facility], [address] [place] [address] [address] [place], [place], [id number], 3 18:05:47 estradiol 0.01% (0.1 mg/gram) vaginal cream 2022 023 [facility], [address] [place] [address] [address], [place], [place], [id number], 3 16:01:00 Patient TargetsNo targets recorded. Patient InstructionsNo instructions recorded. Reason for Referral None Reported. Results Created Date Observation Date Name Description Value Unit Range Abnormal Flag Note LastModifiedBy Organization Detail LastModifiedTime 05/07/20 22 05/07/2022 urina lysis , dipst ick Leukocytes (reference range) negati ve Not Available [facility] [address] [place] [address], [phone], 05/07/2022 12:00:27 05/07/20 22 05/07/2022 urina lysis , dipst ick Nitrite (reference range:) negati ve Not Available [address], [address], 05/07/2022 12:00:27 05/07/20 22 05/07/2022 urina lysis , dipst ick Urobilinogen (reference range) 0.2 Not Available [address], [address], 05/07/2022 12:00:27 05/07/20 22 05/07/2022 urina lysis , dipst ick Protein (reference range) negati ve Not Available [address], [address], 05/07/2022 12:00:27 05/07/20 22 05/07/2022 urina lysis , dipst ick pH (reference range 5-8.5) 7.0 Not Available [facility] [address] [place] [address], [phone], 05/07/2022 12:00:27 05/07/20 22 05/07/2022 urina lysis , dipst ick Blood (reference range:) hemoly zed: Trace Not Available [address], [address], 05/07/2022 12:00:27 05/07/20 22 05/07/2022 urina lysis , dipst ick Specific [place] (reference range) 1.010 Not Available [facility] [address] [place] [address], [address], 05/07/2022 12:00:27 05/07/20 22 05/07/2022 urina lysis , dipst ick Ketone (reference range) negati ve Not Available [facility] [address] [place] [address], [address], 05/07/2022 12:00:27 05/07/20 22 05/07/2022 urina lysis , dipst ick Bilirubin (reference range) negati ve Not Available [facility] [address] [place] [address], [address], 05/07/2022 12:00:27 05/07/20 22 05/07/2022 urina lysis , dipst ick Glucose (reference range) negati ve Not Available [facility] [address] [place] [address], [address], 05/07/2022 12:00:27 03/22/20 23 03/22/2023 urina lysis , dipst ick Leukocytes (reference range) negati ve Not Available [address], [address], 03/22/2023 10:03:05 03/22/20 23 03/22/2023 urina lysis , dipst ick Nitrite (reference range:) negati ve Not Available [address], [address], 03/22/2023 10:03:05 03/22/20 23 03/22/2023 urina lysis , dipst ick Urobilinogen (reference range) 0.2 Not Available [address], [address], 03/22/2023 10:03:05 03/22/20 23 03/22/2023 urina lysis , dipst ick Protein (reference range) negati ve Not Available [facility] [address] [place] [address], [address], 03/22/2023 10:03:05 03/22/2003/22/2023 urina lysis , dipst ick pH (reference range 5-8.5) 7.0 Not Available [facility] [address] [place] [address], [address], 03/22/2023 10:03:05 03/22/2003/22/2023 urina lysis , dipst ick Blood (reference range:) negati ve Not Available [address], [address], 03/22/2023 10:03:05 03/22/2003/22/2023 urina lysis , dipst ick Specific [place] (reference range) 1.010 Not Available [address], [address], 03/22/2023 10:03:05 03/22/2003/22/2023 urina lysis , dipst ick Ketone (reference range) negati ve Not Available [address], [address], 03/22/2023 10:03:05 03/22/2003/22/2023 urina lysis , dipst ick Bilirubin (reference range) negati ve Not Available [address], [address], 03/22/2023 10:03:05 03/22/2003/22/2023 urina lysis , dipst ick Glucose (reference range) negati ve Not Available [address], [address], 03/22/2023 10:03:05 Result Notes None recorded. Problems Name Problem SNOMED Code Status Onset Date Resolution Date Notes Provider Name and Address Organization Details Recorded Time Anemia 707248136 Active 2021 Elaine bourgeois, [place] - [facility] [place] 2 11:07:14 Hypertensive disorder 46635755 Active 2021 Elaine bourgeois, [place] - [facility] & [place] 2 11:07:20 Environmental allergy 759070952 Active 2021 Elaine bourgeois, [place] - [facility] & [place] 2 11:07:28 Arthritis 9049534 Active 2021 Elaine bourgeois, [place] - [facility] & [place] 2 11:07:36 Chronic obstructive pulmonary disease 72497960 Active 2021 Elaine bourgeois, [place] - [facility] & [place] 2 11:07:46 Problem Notes None recorded. Procedures Surgical History Date Name Laterality Status Provider Name and Address Organization Details Recorded Time 03/22/20 23 Urethral Dilation (female) completed Bharat Orona Jr, MD [address] [place] [address], [address], [place], [address], [facility] - [facility] - [place] & [place] 03/22/2023 10:14:17 05/07/20 22 Urethral Dilation (female) completed Bharat Orona Jr, MD [address] [place] [address], [address], [place], [address], [place] - [facility] - [place] & [place] 05/07/2022 14:31:28 Total Hysterectomy completed Elaine DODSON - [facility] [place] 05/07/2022 11:08:36 tonsillectomy completed Elaine DODSON - [facility] - [place] & [place] 05/07/2022 11:08:42 Imaging Results None recorded. Procedure Notes None recorded. Medical Equipment None Reported. Allergies Allergen ID Allergen Name Allergen Category Reaction Reaction Severity Criticality Documentation Date Start Date Code Code System Note Provider Name and Address Organization Details Recorded Time 30327 Product containin g penicilli n (product) medicatio n Not available Not available Not available 05/07/2022 45480 8001 SNOMED Elaine Parikh [facility], [place] - [facility] - [place] & [place] 2 11:03:22 Medications Name Sig Start Date [...] Updated DateTime 03/22/2023 170.18 cm 32.1 kg/m2 12234.44 g 97.9 [degF] [facility] & [place] 03/22/2023 09:25:19 Date Recorded Body height Body mass index (BMI) Body weight Body temperature Provider Name and Address Organization Details Last Updated DateTime 05/07/2022 170.18 cm 32.1 kg/m2 97979.44 g 97.8 [degF] [facility] & [place] 05/07/2022 11:03:06 Social History None recorded. Functional Status Question Answer Note LastModified by Organization D etails LastModified Time What is your level of alcohol consumption? None [email or web address] Information not available 05/07/2022 Mental Status None recorded. Family History Relationship Description Onset Age of this Age Resolved Age Notes LastModified by Organization Details LastModified Time Father Family history unknown Not available 2021 11:08:05 Mother Family history unknown [email or web address] Not available 2021 11:08:05 Medical History No medical history recorded. Gynecological HistoryNo gynecological history recorded. Obstetrics History GPAL:G 0 P 0 0 0 0 Past Encounters Encounter ID Performer Location Encounter Start Date Encounter Closed Date Diagnosis/Indication Diagnosis SNOMED-CT Code Diagnosis ICD10 Code Diagnosis Note [id number] Bharat Orona Jr, MD [facility] [employer] [facility] [employer] [id number] 05/07/2022 10:41:01 05/07/2022 11:59:58 Urethritis 40778838 N34.2 Patient with recurrent symptoms of dysuria, [...] as-needed basis. Stenosis o f urinary meatus 543557732 N35.92 urethral dilation performed today with 24, 26 and 28 Swedish sounds. Patient tolerated procedure well. No significan t resistance was noted. [id number] Bharat Orona Jr, MD [facility] [employer] [id number] 03/22/2023 09:22:49 03/22/2023 10:02:38 Dysuria 87336617 R30.0 Patient with history of urethral stenosis. [...] urethral trigonitis is cause for symptoms. Urethritis 78028551 N34. 2 Patient with recurrent symptoms of [...] Concerns Section Related Observation LastModified by Organization Kt LastModified Time None Recorded Concern Status LastModified by Organization Details LastModified Time None Recorded Advance Directives Directive None Recorded Payers Insurance Date Sequence Insurance Name Policy Number Policy Tatum Covered Member ID Tatum Member ID Guarantor Name 03/22/2023 1 [employer] [facility] (MEDICAID HMO) Janina Ag [id number] Janina Ag Notes Date Note Type Note Provider Name and Address Organization Details Recorded Time 05/07/2022 text/html Patient is a 57-year-old white female with a history of urethral stenosis. She was previously seen at [facility] and sent the Jana. She was last [...] in the past. Bharat Orona Jr, MD [address] [place] [address], [address], [address], [facility] 05/07/2022 14:34:49 03/22/2023 text/html patient is a 57-year-old white female with a history urethral stenosis. She returns today complaining of some vaginal dryness and urethral discomfort. His last seen April 2022 and urethral dilation performed that. Her urinalysis today is within normal limits. States he ran out of her estradiol cream month ago. Bharat Orona Jr, MD [address] [place] [address], [address], [place], [address], [facility] 03/22/2023 10:21:54 OBGyn Episode No OBEpisode recorded.
--- OUTSIDE RECORDS SUMMARY | 2024-10-31 12:51 | XMS_ITS | Clinical Summary ---
Author Organization Healthcare Address [address] [place] [id number] Care Team Providers Care Haunted History Tour Guide Name Role Phone Cedrick Lake MD Primary Care Provider Allergies Active Allergy Reactions Criticality Noted Date Comments Penicillins Unknown - Patient st ates they do not know rxn details Low 04/29/2022 Immunizations Immunization Administration Dates Next Due IPV 09/20/1966 MMR 08/04/2006,12/15/2000 PPD Skin Test (TB Skin Test) 08/29/2007,08/03/19 07,03/15/2006 Social History Tobacco Use Types Packs/Day Years Used Date Smoking Tobacco: Never Smokeless Tobacco: Never Tobacco Cessation:Counseling Given: Not Answered Comments Unknown Sex and Gender Information Value Date Recorded Sex Assigned at Not on file Legal Sex Female 8:39 PM EDT Gender Identity Not on file Sexual Orientation Not on file Last Filed Vital Signs Vital Sign Reading Time Taken Comments Blood Pressure 171/109 04/29/2022 1:35 PM EST Pulse 102 04/29/2022 1:35 PM EST Temperature 37 C (98.6 F) 04/29/2022 1:35 PM EST Respiratory Rate 20 04/29/2022 1:35 PM EST Oxygen Saturation 96% 04/29/2022 1:35 PM EST Inhaled Oxygen Concentration - - Weight 93 kg (205 lb) 04/29/2022 1:35 PM EST Height 170.2 cm (5' 7 ) 04/29/2022 1:35 PM EST Body Mass Index 32.11 04/29/2022 1:35 PM EST Plan of Treatment Not on file Insurance [employer] MEDICAID Care Teams Haunted History Tour Guide Relationship Specialty Start Date End Date Cedrick Lake MD [address] [place] [address] [place] [address] PCP - General 10/03/20
--- NOTE | 2024-10-31 13:30 | CT_ITS ---
FINAL REPORT TECHNIQUE: Thin section axial images were obtained from the lung apices to the upper abdomen by computed tomography. Reformatted images were obtained and reviewed. This study was performed with techniques to keep radiation doses al low as reasonably achievable (ALARA). Individualized dose reduction techniques using automated exposure control or adjustment of mA and/or kV according to the patient's size were employed. CLINICAL HISTORY: lung cancer screening CURRENT SMOKER 1PPD X46 YEARS COMPARISON: 02/24/2022 FINDINGS: CHEST CT LOW DOSE 58-year-old female, current smoker, 18-wtdd-egdf history. CTDI vol (mGy): 2.90 DLP (mGy-cm): 90.12 There is no axillary adenopathy. There is no mediastinal or hilar mass or adenopathy. The heart is normal in size. There is no pericardial or pleural effusion. Lung window images demonstrate a small opacity along the anterior margin of the left major fissure, best seen on image #18 of series 4, likely atelectasis as it is more linear than nodular in appearance. A calcified granuloma is noted in the left lung base. Limited images of the upper abdomen are unremarkable. IMPRESSION: Lung-RADS category 1. Recommend 12 month follow up low dose chest CT. Reviewed, Interpreted and Dictated by Petey Dash MD Transcribed by Alycia Larson Authenticated and [facility]
--- NOTE | 2024-10-31 14:00 | MM_ITS ---
PROCEDURE INFORMATION: Exam: MG Bilateral Screening 3D Mammography Exam date and time: 10/31/2024 1:22 PM Age: 59 years old Clinical indication: Screening examination TECHNIQUE: Imaging protocol: Bilateral Screening tomosynthesis and 2D mammography including computer-aided detection (CAD) when performed. COMPARISON: 1. MG SCBI MM Dig screening mamm BI w/CAD 02/07/2018 10:46 AM 2. MG DMSB DIG MAMM-SCREEN JOHAN W/CAD 02/11/2017 9:44 AM FINDINGS: MAMMOGRAPHY: Breast composition: There are scattered areas of fibroglandular density. Mass: No suspicious masses. Architectural distortion: None. Calcifications: No suspicious calcifications. Asymmetric density: None. Skin thickening: None. Axillary adenopathy: None. IMPRESSION: No mammographic evidence of malignancy. Annual screening is recommended unless otherwise clinically indicated. ASSESSMENT: BI-RADS Category 1: Negative.
== END 2024-10-31 23:59 | disposition home or self-care (01) ==
LOC: RAD 12:48
PROVIDERS: PCP Family Medicine; Visit Provider Family Medicine
DX: Z12.31 Encounter for screening mammogram for malignant neoplasm of breast (principal); Z12.2 Encounter for screening for malignant neoplasm of respiratory organs; R92.323 Mammographic fibroglandular density, bilateral breasts; J84.10 Pulmonary fibrosis, unspecified; F17.210 Nicotine dependence, cigarettes, uncomplicated; J98.4 Other disorders of lung
CPT/HCPCS: 71271; 77063; 77067

== ENCOUNTER 2024-11-13 07:02 | Outpatient (CLI) | payer MEDICAID, SELFPAY ==
--- NOTE | 2024-11-13 | CA_ITS ---
APPROVED REPORT Exam: Pharmacologic Technologist: Misty Salas Ht: 5 ft 7 in Wt: 208 lbs BSA: 2.06 m2 HR: 72 bpm BP: 179/111 mmHg Stress Test Details Test: Lexiscan HR Resting HR: 72 bpm Max Heart Rate (APMHR): 161.724380 bpm Max HR Achieved: 97 bpm Target HR (85% APMHR): 136.923427 bpm % of APMHR: 60.25 Recovery HR: 86 bpm BP Resting BP: 179.0/111.0 mmHg Max BP: 179.0/111.0 mmHg Recovery BP: 153.0/104.0 mmHg ECG Resting ECG: Sinus rhythm Stress ECG Conclusion Symptoms: Chest pressure, dyspnea Arrhythmias/Ectopy: - ST-T Changes: Less than [address] depression. Conclusion: EKG unremarkable due to Lexiscan infusion. Electronically signed by : Concepcion Rubin MD 11/13/2024 12:11:47
--- OUTSIDE RECORDS SUMMARY | 2024-11-13 07:05 | XMS_ITS | Clinical Summary ---
Author Organization Healthcare Address [address] [place] [id number] Care Team Providers Care Dye Range Tender Name Role Phone Cedrick Lake MD Primary Care Provider [phone] Allergies Active Allergy Reactions Criticality Noted Date [...] Insurance [employer] MEDICAID Care Teams Dye Range Tender Relationship Specialty Start Date End Date Cedrick Lake MD [address] [place] [address] [place] [address] PCP - General 10/03/20
--- OUTSIDE RECORDS SUMMARY | 2024-11-13 07:05 | XMS_ITS | Data Portability ---
Author Organization [facility] and [facility] [place] Address [address] [place] [address] Assessment No assessment recorded. Plan of Treatment Reminders Order Date Submit Date Provider Last Modified By Organization Details Last Modified Time Details Appointments None recorded. Lab urinalysis, dipstick [address] [facility], [address] [place] [address], [id number], 3 12:14:48 urinalysis, dipstick [address] [facility], [address] [place] [address], [phone], 2 14:27:35 Referral None recorded. Procedures None recorded. Surgeries None recorded. Imaging None recorded. Medication Orders prasterone (DHEA) 6.5 mg vaginal insert 2022 023 [facility], [address] [place] [address] [address], [place], [place], [id number], 3 18:05:47 estradiol 0.01% (0.1 mg/gram) vaginal cream 2022 023 [facility], [address] [place] [address] [address], [place], [place], [id number], 3 16:01:00 Patient TargetsNo targets recorded. Patient InstructionsNo instructions recorded. Reason for Referral None Reported. Results Created Date Observation Date Name Description Value Unit Range Abnormal Flag Note LastModifiedBy Organization Detail LastModifiedTime 05/07/20 22 05/07/2022 urina lysis , dipst ick Leukocytes (reference range) negati ve Not Available [address], [address], 05/07/2022 12:00:27 05/07/20 22 05/07/2022 urina lysis , dipst ick Nitrite (reference range:) negati ve Not Available [address], [address], 05/07/2022 12:00:27 05/07/20 22 05/07/2022 urina lysis , dipst ick Urobilinogen (reference range) 0.2 Not Available [address], [address], 05/07/2022 12:00:27 05/07/20 22 05/07/2022 urina lysis , dipst ick Protein (reference range) negati ve Not Available [address], [address], 05/07/2022 12:00:27 05/07/20 22 05/07/2022 urina lysis , dipst ick pH (reference range 5-8.5) 7.0 Not Available [address], [address], 05/07/2022 12:00:27 05/07/20 22 05/07/2022 urina lysis , dipst ick Blood (reference range:) hemoly zed: Trace Not Available [address], [address], 05/07/2022 12:00:27 05/07/20 22 05/07/2022 urina lysis , dipst ick Specific Eagle (reference range) 1.010 Not Available [facility] [address] [place] [address], [phone], 05/07/2022 12:00:27 05/07/20 22 05/07/2022 urina lysis , dipst ick Ketone (reference range) negati ve Not Available [facility] [address] [place] [address], [address], 05/07/2022 12:00:27 05/07/20 22 05/07/2022 urina lysis , dipst ick Bilirubin (reference range) negati ve Not Available [facility] [address] [place] [address], [address], 05/07/2022 12:00:27 05/07/20 22 05/07/2022 urina lysis , dipst ick Glucose (reference range) negati ve Not Available [facility] [address] [place] [address], [address], 05/07/2022 12:00:27 03/22/20 23 03/22/2023 urina lysis , dipst ick Leukocytes (reference range) negati ve Not Available [address], [address], 03/22/2023 10:03:05 03/22/20 23 03/22/2023 urina lysis , dipst ick Nitrite (reference range:) negati ve Not Available [address], [address], 03/22/2023 10:03:05 03/22/20 23 03/22/2023 urina lysis , dipst ick Urobilinogen (reference range) 0.2 Not Available [facility] [address] [place] [address], [address], 03/22/2023 10:03:05 03/22/20 03/22/2023 urina lysis , dipst ick Protein (reference range) negati ve Not Available [facility] [address] [place] [address], [address], 03/22/2023 10:03:05 03/22/2003/22/2023 urina lysis , dipst ick pH (reference range 5-8.5) 7.0 Not Available [facility] [address] [place] [address], [address], 03/22/2023 10:03:05 03/22/2003/22/2023 urina lysis , dipst ick Blood (reference range:) negati ve Not Available [address], [address], 03/22/2023 10:03:05 03/22/2003/22/2023 urina lysis , dipst ick Specific Eagle (reference range) 1.010 Not Available [address], [address], 03/22/2023 10:03:05 03/22/2003/22/2023 urina lysis , dipst ick Ketone (reference range) negati ve Not Available [address], [address], 03/22/2023 10:03:05 03/22/2003/22/2023 urina lysis , dipst ick Bilirubin (reference range) negati ve Not Available [address], [address], 03/22/2023 10:03:05 03/22/2003/22/2023 urina lysis , dipst ick Glucose (reference range) negati ve Not Available [address], [address], 03/22/2023 10:03:05 Result Notes None recorded. Problems Name Problem SNOMED Code Status Onset Date Resolution Date Notes Provider Name and Address Organization Details Recorded Time Anemia 500344916 Active 2021 Elaine bourgeois, [place] - [facility] [place] 2 11:07:14 Hypertensive disorder 43283335 Active 2021 Elaine [place], [place] [facility] [place] 2 11:07:20 Environmental allergy 140828330 Active 2021 Elaine bourgeois, [place] [facility] [place] 2 11:07:28 Arthritis 1710015 Active 2021 Elaine bourgeois, [place] [facility] [place] 2 11:07:36 Chronic obstructive pulmonary disease 48753972 Active 2021 Elaine bourgeois, [place] [facility] [place] 2 11:07:46 Problem Notes None recorded. Procedures Surgical History Date Name Laterality Status Provider Name and Address Organization Details Recorded Time 03/22/20 23 Urethral Dilation (female) completed Bharat Orona Jr, MD [address] [place] [address], [address] [place], [address], [place] [facility] [place] 03/22/2023 10:14:17 05/07/20 22 Urethral Dilation (female) completed Bharat Orona Jr, MD [address] [place] [address], [address], [place], [address], [place] [facility] [place] 05/07/2022 14:31:28 Total Hysterectomy completed Elaine DODSON - [facility] [place] 05/07/2022 11:08:36 tonsillectomy completed Elaine DODSON - [facility] [place] 05/07/2022 11:08:42 Imaging Results None recorded. Procedure Notes None recorded. Medical Equipment None Reported. Allergies Allergen ID Allergen Name Allergen Category Reaction Reaction Severity Criticality Documentation Date Start Date Code Code System Note Provider Name and Address Organization Details Recorded Time 39318 Product containin g penicilli n (product) medicatio n Not available Not available Not available 05/07/2022 14651 [id number] SNOMED Elaine Parikh [facility], [place] - [facility] - [place] 2 11:03:22 Medications Name Sig Start Date [...] Updated DateTime 03/22/2023 170.18 cm 32.1 kg/m2 92954.44 g 97.9 [degF] [facility] & [place] 03/22/2023 09:25:19 Date Recorded Body height Body mass index (BMI) Body weight Body temperature Provider Name and Address Organization Details Last Updated DateTime 05/07/2022 170.18 cm 32.1 kg/m2 16207.44 g 97.8 [degF] [facility] [place] 05/07/2022 11:03:06 Social History None recorded. Functional Status Question Answer Note LastModified by Organization D etails LastModified Time What is your level of alcohol consumption? None [email or web address] Information not available 05/07/2022 Mental Status None recorded. Family History Relationship Description Onset Age of this Age Resolved Age Notes LastModified by Organization Details LastModified Time Father Family history unknown [email or web address] Not available 2021 11:08:05 Mother Family history unknown [email or web address] Not available 2021 11:08:05 Medical History No medical history recorded. Gynecological HistoryNo gynecological history recorded. Obstetrics History GPAL:G 0 P 0 0 0 0 Past Encounters Encounter ID Performer Location Encounter Start Date Encounter Closed Date Diagnosis/Indication Diagnosis SNOMED-CT Code Diagnosis ICD10 Code Diagnosis Note [id number] Bharat Orona Jr, MD [facility] [address] [place] [address] [email or web address] [id number] 05/07/2022 10:41:01 05/07/2022 11:59:58 Urethritis 96348433 N34.2 Patient with recurrent symptoms of dysuria, [...] as-needed basis. Stenosis o f urinary meatus 908557077 N35.92 urethral dilation performed today with 24, 26 and 28 [place] sounds. Patient tolerated procedure well. No significan t resistance was noted. [id number] Bharat Orona Jr, MD [facility] [address] [place] [address] [place] [id number] 03/22/2023 09:22:49 03/22/2023 10:02:38 Dysuria 23259691 R30.0 Patient with history of urethral stenosis. [...] urethral trigonitis is cause for symptoms. Urethritis 12855696 N34. 2 Patient with recurrent symptoms of [...] Member ID Guarantor Name 03/22/2023 1 [employer] [facility] (MEDICAID HMO) Janina Ag [id number] Janina Ag Notes Date Note Type Note Provider Name and Address Organization Details Recorded Time 05/07/2022 text/html Patient is a 57-year-old white female with a history of urethral stenosis. She was previously seen at [facility] and sent the Jana. She was last [...] in the past. Bharat Orona Jr, MD [address] [place] [address], [address] [place], [address], [facility] 05/07/2022 14:34:49 03/22/2023 text/html patient is a 57-year-old white female with a history urethral stenosis. She returns today complaining of some vaginal dryness and urethral discomfort. His last seen April 2022 and urethral dilation performed that. Her urinalysis today is within normal limits. States he ran out of her estradiol cream month ago. Bharat Orona Jr, MD [address] [place] [address], [address], [place], [address], [facility] 03/22/2023 10:21:54 OBGyn Episode No OBEpisode recorded.
--- NOTE | 2024-11-13 07:30 | NM_ITS ---
APPROVED REPORT Exam: Nuclear Stress Test Indication: SOB, Fatigue, HTN, High cholesterol, Tobacco use, Family history Patient Location: Outpatient Stress Tech: Misty Salas MA Tech:Irma Fountain, ARRT, RT (R)(N) Ht: 5 ft 7 in Wt: 207 lbs Bra Size: 36D HR: 73 bpm BP: 179/111 mmHg BSA: 2.05 m2 TID: 1.13 BMI: 32.4 History: SOB, Fatigue, HTN, High cholesterol, Tobacco use, Family history Procedure: Patient received 0.4 mg of intravenous Lexiscan, resting heart rate 73 bpm, resting blood pressure 179/111 mmHg, with Lexiscan maximum heart rate achieved was 102 bpm which is % of the maximum predicted heart rate and blood pressure was 158/100 mmHg. With Lexiscan, patient denied any complaint of chest pain. Cardiac Stress and Resting SPECT Images: Cardiac Stress and Resting SPECT images were obtained using technetium 99m Myoview 32.9 mCi stress and 10.93 mCi at rest. Resting and stress imaging in supine and prone positions demonstrate no evidence of fixed or reversible perfusion defects. Gated imaging demonstrates normal global and regional LV systolic function. LVEF is calculated at 53%. Conclusion: No evidence of fixed or reversible perfusion defects. Gated imaging demonstrates normal global and regional LV systolic function. LVEF is calculated at 53%. Electronically signed by : Concepcion Rubin MD 11/13/2024 10:34:19
[2024-11-13] MEDS: REGADENOSON 0.4MG/5ML SYRINGE 0.4 MG IV (08:46)
[2024-11-13] MEDS: ISOTOPE MYOVIEW (PER STUDY) 1 DOSE IV (08:46)
[2024-11-13] MEDS: SODIUM CHLORIDE 0.9% 10ML SYR (RAD ONLY) 10 ML IV ×2 (08:46)
== END 2024-11-13 23:59 | disposition home or self-care (01) ==
LOC: RAD 07:02
PROVIDERS: PCP Family Medicine; Visit Provider Family Medicine
DX: I20.89 Other forms of angina pectoris (principal); E78.5 Hyperlipidemia, unspecified; I10 Essential (primary) hypertension; E78.00 Pure hypercholesterolemia, unspecified; Z72.0 Tobacco use; Z82.49 Family history of ischemic heart disease and other diseases of the circulatory system
CPT/HCPCS: 78452; 93017; 93018; A9502; J2785

== ENCOUNTER 2025-02-21 09:32 | Outpatient (CLI) | payer MEDICAID, SELFPAY ==
--- NOTE | 2025-02-21 09:33 | XR_ITS ---
FINAL REPORT CLINICAL HISTORY: left knee pain COMPARISON: None FINDINGS: Three views of the left knee were obtained. There is no acute fracture or dislocation. Moderately advanced medial compartment joint space narrowing. Osteophytes are noted along the undersurface of the patella. There is no joint effusion. There is no acute soft tissue abnormality. IMPRESSION: Moderate hypertrophic changes of osteoarthritis predominantly in the medial compartment joint space. Reviewed, Interpreted and Dictated by Petey Dash MD Transcribed by Fifi Nance Authenticated and [facility]
--- NOTE | 2025-02-21 09:33 | XR_ITS ---
FINAL REPORT CLINICAL HISTORY: right knee pain COMPARISON: 02/11/2016 FINDINGS: Three views of the right knee were obtained. There is no acute fracture or dislocation. Advanced medial compartment joint space narrowing. Subchondral sclerosis and osteophyte formation. There is a calcific or ossific density superior to the patellofemoral joint consistent with intra-articular loose body measuring 1.8 cm. Prominent hypertrophic changes along the undersurface of the patella. There is no acute soft tissue abnormality. IMPRESSION: Medial compartment and patellofemoral osteoarthritis with intra-articular loose body. Reviewed, Interpreted and Dictated by Petey Dash MD Transcribed by Fifi Nance Authenticated and [facility]
--- OUTSIDE RECORDS SUMMARY | 2025-02-21 09:35 | XMS_ITS | Clinical Summary ---
Author Organization Healthcare Address [address] [place] [id number] Care Team Providers Care Billboard Poster Helper Name Role Phone Cedrick Lake MD Primary Care Provider [phone] Allergies Active Allergy Reactions Criticality Noted Date [...] Insurance [employer] Care Teams Billboard Poster Helper Relationship Specialty Start Date End Date Cedrick Lake MD [address] [place] [address] [place] [id number] PCP - General 10/03/20
== END 2025-02-21 23:59 | disposition home or self-care (01) ==
LOC: RAD 09:32
PROVIDERS: PCP Family Medicine; Visit Provider Physician Assistant
DX: M17.11 Unilateral primary osteoarthritis, right knee (principal); M17.12 Unilateral primary osteoarthritis, left knee; M23.41 Loose body in knee, right knee
CPT/HCPCS: 73562

== ENCOUNTER → 2025-05-08 11:07 | Outpatient (CLI) | payer MEDICAID, SELFPAY ==
--- NOTE | 2025-05-08 11:10 | XR_ITS ---
FINAL REPORT CLINICAL HISTORY: r/o PNA COMPARISON: None FINDINGS: PA and lateral views of the chest were obtained. No acute pulmonary density is evident. There is no evidence of effusion or other pleural disease. The mediastinum has a normal appearance. The cardiac silhouette is unremarkable. IMPRESSION: Unremarkable chest exam. Reviewed, Interpreted and Dictated by Vinny Whitaker MD Transcribed by Fifi Nance Authenticated and [facility]
--- OUTSIDE RECORDS SUMMARY | 2025-05-08 12:45 | XMS_ITS | Clinical Summary ---
Author Organization Healthcare Address [address] [place] [id number] Care Team Providers Care Rn Immunology Name Role Phone Cedrick Lake MD Primary [...] Insurance [employer] Care Teams Rn Immunology Relationship Specialty Start Date End Date Cedrick Lake MD [address] [place] [address] [place] [id number] PCP - General 10/03/20
== END ==
LOC: RAD 11:08
PROVIDERS: PCP Student in an Organized Health Care Education/Training Program; Visit Provider Student in an Organized Health Care Education/Training Program
DX: R06.02 Shortness of breath (principal)
CPT/HCPCS: 71046